=== PATIENT | female | born 1935 | race Hispanic/Latino ===

== ENCOUNTER 2017-04-28 19:33 | Emergency (ER) | payer OTHER, MEDICAID ==
[2017-04-28 19:33] VITALS: BMI 36.6
[2017-04-28 20:02] VITALS: O2SAT 99
--- NOTE | 2017-04-28 21:27 | C.PDOC ---
History Of Present Illness 81 year old female who presents to the ER with a complaint of right upper arm pain after she fell today. Denies head injury, LOC, weakness, or numbness. Chief Complaint (Nursing): Upper Extremity Problem/Injury History Per: Patient History/Exam Limitations: no limitations Onset/Duration Of Symptoms: Hrs Current Symptoms Are (Timing): Still Present Exacerbating Factor(s): Strenuous Use Of Affected Area Recent travel outside of the [place]: No Past Medical History Reviewed: Historical Data, Nursing Documentation, Vital Signs Vital Signs: Last Vital Signs Temp 97.8 F 04/28/17 21:41 Pulse 74 04/28/17 21:41 Resp 18 04/28/17 21:41 BP 146/80 04/28/17 21:41 Pulse Ox 99 04/28/17 21:41 - Medical History PMH: Anemia, Atrial Fibrillation, Diabetes, Gall Bladder Disease, HTN, Hypercholesterolemia, End Stage Renal Disease (DIALYSIS T-TH-SAT (Last dialysis on Wednesday)), Chronic Kidney Disease Surgical History: Cholecystectomy, Endoscopy - [facility] Procedures DRAINAGE OF LEFT LOWER ARM SKIN, EXTERNAL APPROACH (11/12/15) HEMODIALYSIS (09/11/13) INSERTION OF INFUSION DEV INTO SUP VENA CAVA, PERC APPROACH (11/12/15) INSPECTION OF LOWER INTESTINAL TRACT, ENDO (10/10/15) PERFORMANCE OF URINARY FILTRATION, MULTIPLE (11/12/15) PERFORMANCE OF URINARY FILTRATION, SINGLE (05/28/16) REVISION OF AUTOL SUB IN UP ART, OPEN APPROACH (05/28/16) Family History: States: Unknown Family Hx - Social History Hx Tobacco Use: No Hx Alcohol Use: No Hx Substance Use: No - Immunization History Hx Tetanus Toxoid Vaccination: No Hx Influenza Vaccination: Yes Hx Pneumococcal Vaccination: No Review Of Systems Musculoskeletal: Positive for: Arm Pain Neurological: Negative for: Weakness, Numbness, Headache, Dizziness, Other (LOC) Physical Exam - Physical Exam Appears: Non-toxic Skin: Warm, Dry Head: Atraumatic, Normacephalic Extremity: Normal ROM (x4), Tenderness (Right upper arm w/ ecchymosis), No Deformity, No Swelling Neurological/Psych: Oriented x3, Normal Speech, Normal Cognition ED Course And Treatment O2 Sat by Pulse Oximetry: 99 (Room air) Pulse Ox Interpretation: Normal - Other Rad Right shoulder x-ray X-Ray: Interpreted by Me, Viewed By Me Interpretation: Degenerative joint disease. No acute fractures or dislocations. Right humerus x-ray X-Ray: Interpreted by Me, Viewed By Me Interpretation: Degenerative joint disease. No acute fractures or dislocations. Progress Note: Right shoulder x-ray and right humerus x-ray ordered. Arm sling was applied.Patient will be discharged and advised to follow up with ortho. Disposition - Disposition Referrals: Alex Pope III, MD [Staff Provider] - Disposition: HOME/ ROUTINE Disposition Time: 21:24 Condition: STABLE Additional Instructions: Follow up with PMD and Orthopedist within 1-2 days. Return to Ed if feel worse. Prescriptions: traMADol/Acetaminophen [Ultracet 325 MG-37.5 MG] 1 tab PO Q6 PRN #30 tab PRN Reason: Pain Instructions: Shoulder Sprain (ED) Forms: [facility] (Greek) - Clinical Impression Clinical Impression: Shoulder injury - Scribe Statement The provider has reviewed the documentation as recorded by the Scribmaldonado White All medical record entries made by the Scribe were at my direction and personally dictated by me. I have reviewed the chart and agree that the record accurately reflects my personal performance of the history, physical exam, medical decision making, and the department course for this patient. I have also personally directed, reviewed, and agree with the discharge instructions and disposition.
[2017-04-28 21:41] VITALS: BP 146/80; PULSE 74; RESP 18; TEMP 97.8
--- NOTE | 2017-04-29 10:05 | RAD ---
PROCEDURE: Radiographs of the Right Shoulder HISTORY: fall COMPARISON: No prior. FINDINGS: BONES: Diffuse osteopenia suggests osteoporosis questioned limited identification of fractures, particularly nondisplaced fractures. . No definitive displaced fractures identified. No suspicious lytic or blastic changes seen focally. . JOINTS: Limited degenerate changes in the acromioclavicular and glenohumeral joints. SOFT TISSUES: Normal. OTHER FINDINGS: None. IMPRESSION: Diffuse osteopenia suggests osteoporosis. No acute fracture or dislocation.
--- NOTE | 2017-04-29 10:07 | RAD ---
PROCEDURE: Radiographs of the right humerus. HISTORY: fall COMPARISON: None. FINDINGS: BONES: Diffuse osteopenia suggests osteoporosis. No acute fracture or dislocation is grossly evident. Local soft tissues appear diffusely unremarkable. SOFT TISSUES: As above OTHER FINDINGS: None. IMPRESSION: No acute fracture dislocation. No suspicious lytic or blastic change. Osteopenia suggests osteoporosis.
== END 2017-04-28 21:48 | disposition home or self-care (01) ==
LOC: C.ER 19:33
DX: S49.91XA Unspecified injury of right shoulder and upper arm, initial encounter (principal); W19.XXXA Unspecified fall, initial encounter; Y93.9 Activity, unspecified; Y92.9 Unspecified place or not applicable